=== PATIENT | male | born 1965 | race Caucasian/White ===

== ENCOUNTER 2018-10-03 10:53 | Inpatient (IN) | payer OTHER ==
[2018-10-03 13:10] LABS: ADD MAN DIFF? NO
[2018-10-03 13:14] LABS: WHITE BLOOD COUNT 7.6 10^3/ul (4.8-10.8)
[2018-10-03 13:14] LABS: BASOPHIL # 0.1 10^3/ul (0.0-0.1); BASOPHILS % 0.8 % (0.0-2.0); EOSINOPHILS # 0.1 10^3/ul (0.0-0.5); EOSINOPHILS % 1.7 % (0.0-7.0); HEMATOCRIT 45.4 % (42.0-52.0); HEMOGLOBIN 14.5 g/dl (14.0-18.0); LYMPHOCYTES # 2.5 10^3/ul (0.8-2.9); LYMPHOCYTES % 33.5 % (15.0-51.0); MEAN CORPUSCULAR HEMOGLOBIN 28.4 pg (29.0-33.0); MEAN CORPUSCULAR HGB CONC 31.9 g/dl (32.0-37.0); MEAN PLATELET VOLUME 8.9 fl (7.4-10.4); MONOCYTE # 0.5 10^3/ul (0.3-0.9); MONOCYTES % 7.1 % (0.0-11.0); NEUTROPHIL # 4.3 10^3/ul (1.6-7.5); NEUTROPHILS % 56.2 % (39.0-77.0); PLATELET COUNT 336 10^3/UL (140-415); RED CELL DISTRIBUTION WIDTH 13.2 % (11.5-14.5)
[2018-10-03 13:32] LABS: ALANINE AMINOTRANSFERASE 19 IU/L (13-69); ALBUMIN 4.7 g/dl (3.3-4.9); ALBUMIN/GLOBULIN RATIO 1.34; ALKALINE PHOSPHATASE 99 IU/L (42-121); ANION GAP 9 (5-13); ASPARTATE AMINO TRANSFERASE 28 IU/L (15-46); BILIRUBIN,INDIRECT 0.2 mg/dl (0-1.1); BILIRUBIN,TOTAL 0.2 mg/dl (0.2-1.3); BLOOD UREA NITROGEN 17 mg/dl (7-20); CALCIUM 9.6 mg/dl (8.4-10.2); CARBON DIOXIDE 28 mmol/L (21-31); CHLORIDE 106 mmol/L (97-110); CREATININE 0.76 mg/dl (0.61-1.24); Estimated GFR > 60 mL/min (>60); GLUCOSE 79 mg/dl (70-220); POTASSIUM 4.1 mmol/L (3.5-5.1); SODIUM 143 mmol/L (135-144); TOTAL PROTEIN 8.2 g/dl (6.1-8.1)
[2018-10-03 13:33] LABS: INR 0.94; PROTIME 12.7 Sec (11.9-14.9)
[2018-10-03 13:44] LABS: TROPONIN-I < 0.012 ng/ml (0.000-0.120)
[2018-10-03 14:47] LABS: ADD UMIC YES; UR AMORPHOUS CRYSTAL FEW /HPF (NONE SEEN); UR ASCORBIC ACID NEGATIVE (NEGATIVE); UR BACTERIA MODERATE /HPF (NONE SEEN); UR BILIRUBIN (Dip) NEGATIVE (NEGATIVE); UR BLOOD (Dip) 1+ mg/dL (NEGATIVE); UR CLARITY CLOUDY (CLEAR); UR COLOR YELLOW (YELLOW); UR GLUCOSE (Dip) NEGATIVE (NEGATIVE); UR KETONES (Dip) NEGATIVE (NEGATIVE); UR LEUKOCYTE ESTERASE (Dip) 1+ Leu/ul (NEGATIVE); UR NITRITE (Dip) POSITIVE (NEGATIVE); UR RBC 11 /HPF (0-5); UR SPECIFIC GRAVITY (Dip) 1.018 (1.003-1.030); UR SQUAMOUS EPITHELIAL CELL FEW /HPF (FEW); UR TOTAL PROTEIN (Dip) NEGATIVE (NEGATIVE); UR UROBILINOGEN (Dip) NEGATIVE (NEGATIVE); UR WBC 94 /HPF (0-5)
[2018-10-03] MEDS: KETOROLAC 15 MG INJ IV (14:55)
[2018-10-03] MEDS: SODIUM CHLORIDE 0.9% 1L BAG IV* (14:59)
[2018-10-03] MEDS: MEROPENEM 1 GM/50ML(PMX) 50 ML IVPB ×2 (15:27→22:26)
[2018-10-03] MEDS: ONDANSETRON 4 MG INJ IV (15:52)
[2018-10-03] MEDS: morphine 4 MG/ML VIAL IV (15:52)
[2018-10-03] MEDS ORDERED: MAGNESIUM HYDROXIDE 30ML CUP PO (16:30)
[2018-10-03] MEDS ORDERED: KETOROLAC 30 MG INJ IV (16:30)
[2018-10-03] MEDS ORDERED: NACL 0.9% 3 ML SYG IV (16:30)
[2018-10-03] MEDS ORDERED: ACETAMINOPHEN 325 MG TAB PO (16:30)
[2018-10-03] MEDS ORDERED: ONDANSETRON 4 MG INJ IV (16:30)
[2018-10-03] MEDS ORDERED: SALINE 0.65% 45 ML NAS SPRAY NASAL (18:30)
[2018-10-03] MEDS: morphine 2 MG INJ IV ×2 (19:00→23:43)
[2018-10-03] MEDS: CARISOPRODOL 350 MG TAB PO (19:41)
[2018-10-03 20:25] LABS: LACTIC ACID 1.2 mmol/L (0.5-2.0)
[2018-10-03] MEDS: GUAIFENESIN LA 600 MG TABSR PO (22:24)
[2018-10-03] MEDS: HYDROCODONE/APAP (10/325) TAB PO (22:24)
[2018-10-03] MEDS: NICOTINE (14 MG/24 HR) PATCH TRANSDERM (22:44)
[2018-10-04] MEDS: morphine 2 MG INJ IV ×4 (05:59→21:12)
[2018-10-04] MEDS: MEROPENEM 1 GM/50ML(PMX) 50 ML IVPB ×3 (05:59→22:08)
[2018-10-04] MEDS: PANTOPRAZOLE (EC) 40 MG TAB PO (06:00)
[2018-10-04] MEDS: HYDROCODONE/APAP (10/325) TAB PO ×3 (07:06→19:52)
[2018-10-04 07:21] LABS: ADD MAN DIFF? NO
[2018-10-04 07:28] LABS: WHITE BLOOD COUNT 6.9 10^3/ul (4.8-10.8)
[2018-10-04 07:28] LABS: BASOPHIL # 0.1 10^3/ul (0.0-0.1); BASOPHILS % 1.6 % (0.0-2.0); EOSINOPHILS # 0.3 10^3/ul (0.0-0.5); EOSINOPHILS % 3.9 % (0.0-7.0); HEMATOCRIT 39.7 % (42.0-52.0); HEMOGLOBIN 12.7 g/dl (14.0-18.0); LYMPHOCYTES % 43.1 % (15.0-51.0); MEAN CORPUSCULAR HEMOGLOBIN 28.2 pg (29.0-33.0); MEAN CORPUSCULAR VOLUME 88.2 fl (82.0-101.0); MEAN PLATELET VOLUME 9.2 fl (7.4-10.4); MONOCYTE # 0.6 10^3/ul (0.3-0.9); MONOCYTES % 8.9 % (0.0-11.0); NEUTROPHIL # 2.9 10^3/ul (1.6-7.5); NEUTROPHILS % 41.6 % (39.0-77.0); PLATELET COUNT 293 10^3/UL (140-415); RED CELL DISTRIBUTION WIDTH 13.5 % (11.5-14.5)
[2018-10-04 07:58] LABS: ANION GAP 5 (5-13); BLOOD UREA NITROGEN 18 mg/dl (7-20); CALCIUM 8.8 mg/dl (8.4-10.2); CARBON DIOXIDE 27 mmol/L (21-31); CHLORIDE 109 mmol/L (97-110); Estimated GFR > 60 mL/min (>60); GLUCOSE 88 mg/dl (70-220); MAGNESIUM 2.1 mg/dl (1.7-2.5); POTASSIUM 4.3 mmol/L (3.5-5.1); SODIUM 141 mmol/L (135-144)
[2018-10-04] MEDS: GUAIFENESIN LA 600 MG TABSR PO ×2 (11:09→21:13)
[2018-10-04] MEDS: NICOTINE (14 MG/24 HR) PATCH TRANSDERM (11:10)
[2018-10-04] MEDS: LISINOPRIL 20 MG TAB PO (11:10)
[2018-10-04] MEDS: ENOXAPARIN 40 MG/0.4 ML SYG SC (11:11)
[2018-10-04] MEDS: SOD CHLORIDE 0.9% 1,000 ML IV (13:01)
[2018-10-05] MEDS: morphine LIQ (10 MG/5 ML) CUP PO ×3 (01:38→20:20)
[2018-10-05] MEDS: MEROPENEM 1 GM/50ML(PMX) 50 ML IVPB (05:35)
[2018-10-05] MEDS: PANTOPRAZOLE (EC) 40 MG TAB PO (05:35)
[2018-10-05] MEDS: HYDROCODONE/APAP (10/325) TAB PO ×3 (05:48→23:56)
[2018-10-05 06:24] LABS: ADD MAN DIFF? NO
[2018-10-05 06:28] LABS: BASOPHIL # 0.1 10^3/ul (0.0-0.1); EOSINOPHILS # 0.3 10^3/ul (0.0-0.5); EOSINOPHILS % 3.7 % (0.0-7.0); HEMATOCRIT 39.2 % (42.0-52.0); HEMOGLOBIN 12.5 g/dl (14.0-18.0); MEAN CORPUSCULAR HEMOGLOBIN 28.5 pg (29.0-33.0); MEAN CORPUSCULAR HGB CONC 31.9 g/dl (32.0-37.0); MEAN CORPUSCULAR VOLUME 89.5 fl (82.0-101.0); MEAN PLATELET VOLUME 9.3 fl (7.4-10.4); MONOCYTE # 0.6 10^3/ul (0.3-0.9); MONOCYTES % 8.1 % (0.0-11.0); NEUTROPHIL # 2.9 10^3/ul (1.6-7.5); NEUTROPHILS % 42.5 % (39.0-77.0); PLATELET COUNT 289 10^3/UL (140-415); RED BLOOD COUNT 4.38 10^6/ul (4.70-6.10); RED CELL DISTRIBUTION WIDTH 13.4 % (11.5-14.5)
[2018-10-05 06:28] LABS: WHITE BLOOD COUNT 6.8 10^3/ul (4.8-10.8)
[2018-10-05] MEDS: CARISOPRODOL 350 MG TAB PO (07:01)
[2018-10-05] MEDS: SOD CHLORIDE 0.9% 1,000 ML IV ×2 (07:30→13:49)
[2018-10-05] MEDS: GUAIFENESIN LA 600 MG TABSR PO ×2 (08:29→20:20)
[2018-10-05] MEDS: LISINOPRIL 20 MG TAB PO (08:29)
[2018-10-05] MEDS: ENOXAPARIN 40 MG/0.4 ML SYG SC (08:30)
[2018-10-05] MEDS: NICOTINE (14 MG/24 HR) PATCH TRANSDERM (08:30)
[2018-10-05] MEDS: CEFTRIAXONE 1 GM/50 ML (PMX) 50 ML IVPB (13:42)
[2018-10-05] MEDS: morphine 2 MG INJ IV (13:42)
[2018-10-05] MEDS: DOCUSATE SODIUM 100 MG CAP PO (15:19)
[2018-10-05] MEDS: BISACODYL 10 MG SUPP PR (20:20)
[2018-10-06] MEDS: morphine LIQ (10 MG/5 ML) CUP PO ×5 (01:12→18:29)
[2018-10-06] MEDS: PANTOPRAZOLE (EC) 40 MG TAB PO (05:09)
[2018-10-06] MEDS: NICOTINE (14 MG/24 HR) PATCH TRANSDERM (08:33)
[2018-10-06] MEDS: LISINOPRIL 20 MG TAB PO (08:33)
[2018-10-06] MEDS: HYDROCODONE/APAP (10/325) TAB PO ×3 (08:33→21:56)
[2018-10-06] MEDS: SOD CHLORIDE 0.9% 1,000 ML IV (08:34)
[2018-10-06] MEDS: ENOXAPARIN 40 MG/0.4 ML SYG SC (08:34)
[2018-10-06] MEDS: GUAIFENESIN LA 600 MG TABSR PO ×2 (08:34→20:31)
[2018-10-06] MEDS: CARISOPRODOL 350 MG TAB PO (10:22)
[2018-10-06] MEDS: CEFTRIAXONE 1 GM/50 ML (PMX) 50 ML IVPB (11:14)
[2018-10-07] MEDS: morphine LIQ (10 MG/5 ML) CUP PO ×4 (00:32→14:20)
[2018-10-07] MEDS: SOD CHLORIDE 0.9% 1,000 ML IV (05:27)
[2018-10-07] MEDS: PANTOPRAZOLE (EC) 40 MG TAB PO (05:30)
[2018-10-07] MEDS: GUAIFENESIN LA 600 MG TABSR PO (09:00)
[2018-10-07] MEDS: HYDROCODONE/APAP (10/325) TAB PO ×2 (09:03→15:14)
[2018-10-07] MEDS: NICOTINE (14 MG/24 HR) PATCH TRANSDERM (09:03)
[2018-10-07] MEDS: ENOXAPARIN 40 MG/0.4 ML SYG SC (09:04)
[2018-10-07] MEDS: LISINOPRIL 20 MG TAB PO (09:05)
[2018-10-07] MEDS: CARISOPRODOL 350 MG TAB PO (11:14)
[2018-10-07] MEDS: CEFTRIAXONE 1 GM/50 ML (PMX) 50 ML IVPB (11:14)
== END 2018-10-07 18:35 | disposition home health service (06) | DRG 690 ==
LOC: E/R 10:53 → PP2 15:49
PROC: 0T9B70Z Drainage of Bladder with Drainage Device, Via Natural or Artificial Opening (ICD-10-PCS; principal; 2018-10-03)
DX: N39.0 Urinary tract infection, site not specified (principal); G82.20 Paraplegia, unspecified; B96.20 Unspecified Escherichia coli [E. coli] as the cause of diseases classified elsewhere; N32.3 Diverticulum of bladder; N31.9 Neuromuscular dysfunction of bladder, unspecified; R33.9 Retention of urine, unspecified; F17.200 Nicotine dependence, unspecified, uncomplicated; Z16.20 Resistance to unspecified antibiotic
CPT/HCPCS: 36415; 71045; 74176; 80048; 80053; 81001; 83605; 83735; 84484; 85025; 85610; 85730; 87040; 87086; 93005; 96374; 96375; 99285-25